=== PATIENT | male | born 2005 | race African-American/Black ===

== ENCOUNTER 2023-09-07 03:45 | Emergency (ER) | payer BC ==
[~2023-09-07] VITALS: Ht 188 cm; Wt 137.0 kg
[2023-09-07 03:50] VITALS: BP 109/66; PULSE 84; RESP 16; TEMP 95.2; O2SAT 94
[2023-09-07] MEDS ORDERED: IPRATROPIUM 0.02% 0.5 MG/2.5 ML NEBU INH ONE (04:10)
[2023-09-07] MEDS ORDERED: ALBUTEROL 0.083% 2.5 MG/3 ML NEBU INH ONE (04:10)
[2023-09-07] MEDS ORDERED: predniSONE 20 MG TAB PO ONE (04:10)
[2023-09-07 04:12] VITALS: TEMP 98.2
[2023-09-07 04:28] VITALS: PULSE 80; RESP 16; O2SAT 97
[2023-09-07] MEDS ORDERED: PRED20TA5 PO (05:48)
[2023-09-07] MEDS ORDERED: ALBU0.0912 IH (05:48)
[2023-09-07 05:51] LABS: FLU A ANTIGEN negative (NEGATIVE); FLU B ANTIGEN NEGATIVE (NEGATIVE)
== END 2023-09-07 06:09 | disposition home or self-care (01) ==
LOC: MED 03:45
DX: J45.901 Unspecified asthma with (acute) exacerbation (principal); J98.8 Other specified respiratory disorders; B97.89 Other viral agents as the cause of diseases classified elsewhere; Z20.822 Contact with and (suspected) exposure to COVID-19; Z79.899 Other long term (current) drug therapy
CPT/HCPCS: 87426; 87804; 94640; 99283; J7512; J7613; J7644